=== PATIENT | male | born 2005 | race Caucasian/White ===

== ENCOUNTER 2024-02-18 11:39 | Emergency (ER) | payer BC, SELFPAY ==
[2024-02-18 11:42] VITALS: BP 131/81
--- NOTE | 2024-02-18 13:36 | ED.GENMED ---
History of Present Illness
General
Chief Complaint: Musculo-Skeletal Complaint
Source: patient
Time Seen by Provider: 02/18/24 13:05
History of Present Illness
History of Present Illness:
18-year-old male presenting to the emergency department for evaluation of right shoulder pain and injury sustained while playing football in his backyard with friends/family yesterday. Today has decreased range of motion and continued pain over the
posterolateral portion of his shoulder. Denies any previous history of surgery but does note that he had a previous clavicular injury many years ago from a snowboarding accident. No other injuries or concerns presently.
Past History
Past History
ED Past Medical History: None
ED Past Surgical History: None
Social History
Tobacco: Non-smoker
Alcohol: None
Drug: None
Personal: Single
Living: with family
Review of Systems
Review of Systems
All Other Systems: ROS reviewed and negative except as documented in HPI and ROS
Phy Exam
Physical Exam
Physical Exam:
GENERAL: Alert , in no apparent distress
EYE: conjunctiva clear
Head: Normocephalic atraumatic
NECK: Supple,
ENT: mmm.
LUNGS: no acute respiratory distress
NEUROLOGICAL: Alert and oriented
SKIN: Warm and dry, skin intact.
MUSCULOSKELETAL: Right upper extremity: No obvious deformity, erythema, edema, ecchymosis, abrasion or laceration. Generally tender over the humeral head region. Range of motion of the right shoulder is significantly limited secondary to pain.
Remainder of extremity has normal range of motion and without any signs of trauma
PSYCH: Normal and appropriate interaction.
Scores
Heart Failure Risk
Heart Failure Risk Score: Not Applicable
Heart Score for Chest Pain Patients
STEMI patient?: Not applicable
Withdrawal Assessment of Alcohol
Withdrawal Assessment Completed?: Not applicable
Course
Orders/Labs/Results
Orders:
Orders
02/18/24 11:45
Shoulder, Right, Trauma [CR Shoulder, Trauma - Right] Urgent
Comment:
Reason For Exam: injury
02/18/24 13:39
Sling Right-Treatment ONCE
Vital Signs
Initial and Last Documented VS:
Initial Vital Signs
Temp Pulse Resp BP Pulse Ox
98.7 F 70 18 131/81 96
02/18/24 11:42 02/18/24 11:42 02/18/24 11:42 02/18/24 11:42 02/18/24 11:42
Last Documented Vital Signs
Temp Pulse Resp BP Pulse Ox
98.7 F 70 18 131/81 96
02/18/24 11:42 02/18/24 11:42 02/18/24 11:42 02/18/24 11:42 02/18/24 11:42
MDM/Problems Addressed
Differential Diagnosis Includes:
Shoulder sprain, AC sprain, SC sprain, rotator cuff injury, fracture, dislocation
MDM/Problems Addressed:
18-year-old female presenting to the emergency department for evaluation of right shoulder pain after falling on the right shoulder playing football last night. Decreased range of motion secondary to pain. X-ray ordered and shows no acute
fracture. Suspect sprain is most likely diagnosis. Will place in sling. NSAIDs/Tylenol as needed for pain. Information for orthopedics provided. Otherwise stable for discharge home.
*Radiology
Radiology exam reviewed: preliminary read by ED provider (no fx/dislocation)
*Pulse Oximetry
Patient hypoxic: no
*Critical Care Note
Total Time (30-74mins, 75-104mins- exclusive of procedures): Not Applicable
ED Attending Note
-
Portions of this chart may have been created with voice recognition software.� Occasional wrong word or��sound alike� substitutions may have occurred due to the inherent limitations of voice recognition software.
Discharge Plan
Departure
Patient Disposition: Home (Routine Discharge)
Date of Disposition: 02/18/24
Time of Disposition: 13:37
Patient with high blood pressure during this ER visit?: No
Discharge Problem:
Sprain of right shoulder
Instructions: Shoulder Sprain (DC)
Prescriptions:
No Action
cephalexin 500 mg capsule
500 mg PO BID 10 Days Qty: 20 0RF
Referrals:
Rip Fuentes MD [Active] - (Ortho)
Kelsey Plummer NP [Family Provider] -
Interventions
Interventions:
*Risk Screen - Suicide Last Done: 02/18/24 11:42
*General Assessment Last Done: 02/18/24 11:42
*Neglect/Abuse Screening Last Done: 02/18/24 11:42
Discharge Date and Time
Print Language: SAUDI ARABIAN
== END 2024-02-18 14:50 | disposition home or self-care (01) ==
LOC: EMR 11:39
PROVIDERS: EMERGENCY PHYSICIAN Emergency Medicine; FAMILY PHYSICIAN Internal Medicine
DX: S43.401A Unspecified sprain of right shoulder joint, initial encounter (principal); W18.30XA Fall on same level, unspecified, initial encounter; Y93.61 Activity, american tackle football; Y92.007 Garden or yard of unspecified non-institutional (private) residence as the place of occurrence of the external cause; Z91.014 Allergy to mammalian meats; Z91.012 Allergy to eggs
CPT/HCPCS: 99283; 73030

== ENCOUNTER 2024-09-10 05:38 | Emergency (ER) | payer BC, SELFPAY ==
[2024-09-10 05:43] VITALS: BP 134/79; BP 134/80
--- NOTE | 2024-09-10 05:46 | ED.GENMED ---
History of Present Illness
General
Chief Complaint: Allergic Reaction
Source: patient
Exam Limitations: none
Time Seen by Provider: 09/10/24 05:44
Nursing documentation reviewed up to this point in time: agreed with
History of Present Illness
History of Present Illness:
19-year-old male with nut allergy accidentally ate a pecan with his granola this morning throat swelled up he got nauseated took a Benadryl vomited up did not have his EpiPen with him had some recent seasonal allergies
Past History
Past History
ED Past Medical History: None
ED Past Surgical History: None
Social History
Tobacco: Non-smoker
Alcohol: None
Drug: None
Personal: Single
Living: with family
Employment: Employed
Review of Systems
Review of Systems
All Other Systems: Not applicable
EENT: Reports mouth swelling
Respiratory: Denies cough
ABD/GI: Reports vomiting
Skin: Reports itching
Phy Exam
Physical Exam
Physical Exam:
Physical Exam
General: 19-year-old male mild distress
Neck: Swollen face nasally voice swollen uvula
Heart: s1/s2 regular rate and rhythm, no murmur. equal radial pulses.
Lungs: No wheeze
Abdomen: Nontender
Neuro: alert and oriented. no focal neurological deficits
Skin: no rash
Psychiatric: well kept. interactive and cooperative
Extremities: no edema.
Course
Orders/Labs/Results
Orders:
Orders
09/10/24 05:42
EPINEPHrine PF [Adrenalin] 1 mg .ROUTE .STK-MED ONE
09/10/24 05:44
IV Insert/Care/Rem.- Treatment PRN
Dexamethasone Sod Phosphate [Decadron] 10 mg IV NOW STA
Diphenhydramine [Benadryl] 50 mg IV NOW STA
EPINEPHrine PF [Adrenalin] 0.3 mg IM NOW STA
Famotidine [Pepcid] 20 mg IV NOW STA
09/10/24 05:52
0.9% Sodium Chloride 1000 ml [Nss] 1,000 ml IV BOLUS
Ondansetron Injectable [Zofran] 4 mg .ROUTE .STK-MED ONE
Ondansetron Injectable [Zofran] 4 mg IV NOW STA
Vital Signs
Initial and Last Documented VS:
Initial Vital Signs
Pulse Resp BP Pulse Ox
74 20 134/80 100
09/10/24 05:43 09/10/24 05:43 09/10/24 05:43 09/10/24 05:43
Last Documented Vital Signs
Pulse Resp BP Pulse Ox
74 20 134/80 100
09/10/24 05:43 09/10/24 05:43 09/10/24 05:43 09/10/24 05:43
MDM/Problems Addressed
Differential Diagnosis Includes:
Allergic reaction
MDM/Problems Addressed:
Allergic reaction possible early anaphylaxis
*Pulse Oximetry
Patient hypoxic: no
*Critical Care Note
Total Time (30-74mins, 75-104mins- exclusive of procedures): 7
Update Note
Update Note:
Update nut allergy patient active exposed to nuts some swelling in his posterior pharynx and uvula will give IM epi Benadryl steroids follow-up for any reoccurrence he states he does have EpiPen's at home we did have it with him
Reevaluation feeling a bit better
ED Attending Note
-
Portions of this chart may have been created with voice recognition software.� Occasional wrong word or��sound alike� substitutions may have occurred due to the inherent limitations of voice recognition software.
Discharge Plan
Departure
Patient Disposition: Home (Routine Discharge)
Date of Disposition: 09/10/24
Time of Disposition: 06:11
Patient with high blood pressure during this ER visit?: No
Condition: Good
Discharge Problem:
Allergy to nuts
Instructions: Anaphylaxis - Discharge instructions, Allergic reaction - ED discharge instructions
Prescriptions:
New
epinephrine [EpiPen 2-Tony] 0.3 mg/0.3 mL auto-injector
0.3 mg IM Q5-15M PRN (Reason: anaphylaxis) Qty: 2 6RF
diphenhydramine HCl [Benadryl] 25 mg capsule
25 mg PO Q6H PRN (Reason: allergic reaction) Qty: 20 0RF
No Action
cephalexin 500 mg capsule
500 mg PO BID 10 Days Qty: 20 0RF
Interventions
Interventions:
*Risk Screen - Suicide Last Done: 09/10/24 05:43
*General Assessment Last Done: 09/10/24 06:00
*Neglect/Abuse Screening Last Done: 09/10/24 05:43
*ED- Fall Risk Assessment Last Done: 09/10/24 06:00
*ED COVID-19 Vaccine History Last Done: 09/10/24 06:00
ED- Cardiac Assessment Last Done: 09/10/24 06:00
ED- Pulmonary Assessment Last Done: 09/10/24 06:00
ED-Skin Assessment Last Done: 09/10/24 06:00
Discharge Date and Time
Print Language: AMHARIC
[2024-09-10] MEDS: ZOFRAN 4 MG IV (05:57)
[2024-09-10] MEDS: PEPCID 20 MG IV (05:57)
[2024-09-10] MEDS: ADRENALIN 0.3 MG IM (05:57)
[2024-09-10] MEDS: BENADRYL 50 MG IV (05:58)
[2024-09-10] MEDS: DECADRON 10 MG IV (05:58)
[2024-09-10] MEDS: NSS 1000 IV (05:59)
[2024-09-10 06:00] VITALS: BP 136/90; BMI 25.4
[2024-09-10 07:00] VITALS: BP 115/62
[2024-09-10 08:00] VITALS: BP 106/66
[2024-09-10 09:00] VITALS: BP 98/64
[2024-09-10 10:00] VITALS: BP 114/66
== END 2024-09-10 10:49 | disposition home or self-care (01) ==
LOC: EMR 05:38
PROVIDERS: EMERGENCY PHYSICIAN Emergency Medicine; FAMILY PHYSICIAN Internal Medicine
DX: T78.1XXA Other adverse food reactions, not elsewhere classified, initial encounter (principal); R11.2 Nausea with vomiting, unspecified; R22.0 Localized swelling, mass and lump, head; L29.9 Pruritus, unspecified; F90.9 Attention-deficit hyperactivity disorder, unspecified type; Z86.16 Personal history of COVID-19; Z91.014 Allergy to mammalian meats; Z91.012 Allergy to eggs; Z91.018 Allergy to other foods
CPT/HCPCS: 99284; 96374; 96375 ×4; 96361

== ENCOUNTER → 2025-04-30 10:58 | Outpatient (REF) | payer BC, SELFPAY | LOC: MRI 3T 10:58 | PROVIDERS: ATTENDING PHYSICIAN Specialist; FAMILY PHYSICIAN Family Medicine | DX: G43.109 Migraine with aura, not intractable, without status migrainosus (principal) | CPT/HCPCS: 70553; A9575 ==